=== PATIENT | female | born 1990 | race Caucasian/White ===

== ENCOUNTER 2018-11-27 13:03 | Outpatient (CLI) | payer MEDICAID ==
--- NOTE | 2018-11-27 12:40 | NUR ---
BRITT LUND presented to unit via stretcher from EMS, accompanied by EMS staff, with c/o CRAMPING. BRITT LUND to bed. EFHM and TOCO applied, VS taken. BRITT LUND oriented to bed controls, call light, TV, heat, and A/C controls.
--- NOTE | 2018-11-27 13:10 | NUR ---
Dr. Marion called and notified of pt arrival. notified that pt sees a "Dr. Holland" in [place], [place] and also sees a perinatologist (does not know name) in [place], she thinks maybe at [place]. Pt presents with c/o lower abdominal/back cramping and mucousy discharge since 1145 this am. notified of pt reported hx of pulmonary HTN, tachycardia, pulmonary embolism, autoimmune disease, G4, P2, L2, 2nd miscarriage of twins. Pt reports due date of Apr 09, 2018 (21wks today) and this was a twin gestation, but was told "several weeks ago" that one had miscarried. Pt reports taking propranolol 20mg TID, PNV, and is supposed to take heparin but hasn't for several weeks. Pt denies S/S of UTI, vaginal discharge, itching, or discomfort, and no recent intercourse. notified of negative nitrazine,single FHR detected at 150's, no ctx noted, VS. Orders rec'd for UDS, clean catch UA, US, and wet prep if vaginal discharge.
[2018-11-27 14:08] LABS: AMPHETAMINE SCREEN, URINE NEGATIVE (NEGATIVE); BARBITURATE SCREEN URINE NEGATIVE (NEGATIVE); BENZODIAZEPINES SCREEN URINE NEGATIVE (NEGATIVE); CANNABINOID SCREEN, URINE NEGATIVE (NEGATIVE); COCAINE SCREEN URINE NEGATIVE (NEGATIVE); METHADONE STAT NEGATIVE (NEGATIVE); METHAMPHETAMINE SCREEN URINE S NEGATIVE (NEGATIVE); OPIATE SCREEN URINE NEGATIVE (NEGATIVE); OXYCODONE STAT NEGATIVE (NEGATIVE); PROPOXYPHENE STAT NEGATIVE (NEGATIVE); TRICYCLIC ANTIDEPRESSANTS SCRE NEGATIVE (NEGATIVE)
[2018-11-27 14:11] LABS: CLARITY,URINE CLEAR; COLOR,URINE YELLOW
[2018-11-27 14:13] LABS: BILIRUBIN,URINE NEGATIVE (NEGATIVE); GLUCOSE, URINE (UA) NEGATIVE (NEGATIVE); KETONES,URINE NEGATIVE (NEGATIVE); LEUKOCYTE ESTERASE ,URINE NEGATIVE (NEGATIVE); NITRITE,URINE NEGATIVE (NEGATIVE); PH,URINE 6.5 (5-9); PROTEIN,URINE NEGATIVE (NEGATIVE); UROBILINOGEN,URINE NORMAL (NORMAL)
[2018-11-27 14:15] LABS: BACTERIA,URINE NEGATIVE /HPF; SQUAMOUS EPITHELIAL CELL,UR 0-2 /HPF
--- NOTE | 2018-11-27 14:30 | NUR ---
Dr. Marion called and notified of US report, UA, UDS results, wet prep held. Orders for discharge rec'd with instruction for strict pelvic rest and follow up with her OBGYN.
[2018-11-27] MEDS ORDERED: PROP20SO PO (14:41)
[2018-11-27] MEDS ORDERED: PREN-53 PO (14:41)
--- NOTE | 2018-11-27 15:17 | Diagnostic Imaging Report ---
INDICATION: . Reported twin gestation though lost one of the gestations recently. TECHNIQUE: Multiple real-time grayscale images were obtained over the gravid uterus. COMPARISON: None FINDINGS: A single live intrauterine gestation is identified in a transverse orientation. The placenta is anteriorly located though extends along the inferior aspect of the uterus covering the internal cervical os. No significant fluid underlying the placenta. Amniotic fluid is subjectively within normal limits. cardiac motion is documented at 147 beats per minute. The cervix is closed and measures 7.2 cm in length, which is within normal limits. biometrics are symmetric and consistent with an estimated gestational age of 21 weeks and 2 days. Findings are consistent with clinical dating. Estimated due date based upon this examination of04/07/2019. anatomy was not specifically evaluated on this examination. IMPRESSION: 1. Single live intrauterine gestation in a transverse presentation with an estimated gestational age of 21 weeks and 2 days. Findings are consistent with clinical dating. Estimated due date based upon this examination is 04/07/2019. 2. Findings consistent with a complete placenta previa. Followup imaging is recommended prior to delivery to reevaluate the location of the placenta. Biometrical measurements are as follows: Biparietal 5.07 cm, age 21 weeks 3 days. Head circumference 18.56 cm, age 21 weeks 0 days. Abdominal circumference 16.17 cm, age 21 weeks 2 days. Femur length 3.57 cm, age 21 weeks 3 days. Sonographic estimate age: 21 weeks 2 days. Sonographic estimated date of delivery: 04/07/2019. Estimated Weight: 410 gm (+/- 60 gm). LMP percentile: 58%. heart rate: 147 beats per minute. number: 1 of 1. Dictated by: Dictated on workstation # [id number]
--- NOTE | 2018-11-27 15:35 | NUR ---
IV removed per SN Christie under this RN supervision. Discharge instructions explained to pt with copy provided to pt. Emphasis given on importance of pelvic rest d/t placenta previa. Placenta previa and risks involved explained to pt, pt verbalizes understanding of instructions and signs to verify. Pt reports she is scheduled to see her OBGYN next week. Pt without transportation as she was brought to hospital via EMS. Transportation arranged with local taxi service.
--- NOTE | 2018-11-27 15:50 | NUR ---
Pt taken off unit via wheelchair accompanied by RN, SN, toddler. To taxi service with all personal belongings. No s/s of distress noted.
--- NOTE | 2018-11-28 08:24 | Physician Query-Final Dx ---
BLANCHE DUNN 11/28/18 0824: Clinic Account Progress/Dx Physician Query: Please give diagnosis Please include the weeks gestation Date of Service Nov 27, 2018 at 13:03 ZACH LACKEY DO 11/28/18 1032: Clinic Account Progress/Dx DIAGNOSIS: Diagnosis 21 week IUP Vaginal discharge Complete placenta previa BLANCHE DUNN Nov 28, 2018 08:24 ZACH LACKEY DO Nov 28, 2018 10:32
== END 2018-11-27 15:50 | disposition home or self-care (01) ==
LOC: WSo 13:03 → LDRP 13:04 → WSo 15:50
PROVIDERS: ATTEND Obstetrics & Gynecology
DX: O44.02 Complete placenta previa NOS or without hemorrhage, second trimester (principal); O26.892 Other specified pregnancy related conditions, second trimester; N89.8 Other specified noninflammatory disorders of vagina; Z3A.21 21 weeks gestation of pregnancy
CPT/HCPCS: 76805; 80306; 81000; 99213